=== PATIENT | female | born 1955 | race Native Hawaiian/Other Pacific Islander ===

== ENCOUNTER 2016-09-27 10:38 | Outpatient (CLI) | payer BC ==
[~2016-09-27] VITALS: Ht 160 cm; Wt 57.2 kg
[2016-09-27 11:00] VITALS: BP 123/57; TEMP 98.1
== END 2016-09-27 23:03 | disposition home or self-care (01) ==
LOC: INF 10:38
DX: M85.80 Other specified disorders of bone density and structure, unspecified site (principal)
CPT/HCPCS: 36415; 82310; 96372; J0897

== ENCOUNTER 2016-10-19 10:43 | Outpatient (CLI) | payer BC | END 2016-10-19 19:41 | disposition home or self-care (01) | LOC: RAD 10:43 | DX: J98.4 Other disorders of lung (principal) ==

== ENCOUNTER 2017-04-12 09:28 | Outpatient (CLI) | payer BC ==
[~2017-04-12] VITALS: Ht 160 cm; Wt 58.5 kg
[2017-04-12 10:25] VITALS: BP 105/59; TEMP 98.4
== END 2017-04-12 10:25 | disposition home or self-care (01) ==
LOC: INF 09:28
DX: M81.0 Age-related osteoporosis without current pathological fracture (principal)
CPT/HCPCS: 36415; 82310; 96372; J0897

== ENCOUNTER → 2017-09-07 14:40 | Outpatient (CLI) | payer BC | END | disposition home or self-care (01) | LOC: RAD 14:40 | DX: J45.30 Mild persistent asthma, uncomplicated (principal) ==

== ENCOUNTER 2017-09-23 15:43 | Outpatient (CLI) | payer BC | END 2017-09-23 21:08 | disposition home or self-care (01) | LOC: CT 15:43 | DX: R06.89 Other abnormalities of breathing (principal); R06.09 Other forms of dyspnea | CPT/HCPCS: 36415; 82565; 84520; Q9963 ==

== ENCOUNTER 2018-06-13 14:11 | Outpatient (CLI) | payer BC ==
[2018-06-13 14:33] LABS: PLATELET COUNT 242 K/uL (152-353)
== END 2018-06-13 21:24 | disposition home or self-care (01) ==
LOC: LABW 14:11
PROVIDERS: Internal Medicine Pulmonary Disease
DX: J30.2 Other seasonal allergic rhinitis (principal)
CPT/HCPCS: 36415; 82785; 85027

== ENCOUNTER 2018-09-26 08:45 | Outpatient (CLI) | payer BC | END 2018-09-26 19:12 | disposition home or self-care (01) | LOC: LABW 08:45 | DX: J45.40 Moderate persistent asthma, uncomplicated (principal) | CPT/HCPCS: 36415; 82785; 86003 ==

== ENCOUNTER 2019-03-21 11:01 | Outpatient (CLI) | payer BC | END 2019-03-21 23:47 | disposition home or self-care (01) | LOC: RAD 11:01 | DX: J45.50 Severe persistent asthma, uncomplicated (principal) ==

== ENCOUNTER 2021-11-30 16:04 | Outpatient (CLI) | payer BC | END 2021-11-30 20:17 | disposition home or self-care (01) | LOC: RAD 16:04 | PROVIDERS: ATTEND Internal Medicine | DX: M54.2 Cervicalgia (principal); Z98.890 Other specified postprocedural states ==

== ENCOUNTER 2022-02-04 10:09 | Outpatient (CLI) | payer BC | END 2022-02-04 19:54 | disposition home or self-care (01) | LOC: RAD 10:09 | PROVIDERS: ATTEND Internal Medicine | DX: Z13.820 Encounter for screening for osteoporosis (principal); N95.8 Other specified menopausal and perimenopausal disorders ==

== ENCOUNTER 2022-04-21 14:04 | Outpatient (CLI) | payer BC | END 2022-04-21 19:11 | disposition home or self-care (01) | LOC: RAD 14:04 | PROVIDERS: ATTEND Internal Medicine | DX: M79.671 Pain in right foot (principal); M25.571 Pain in right ankle and joints of right foot ==

== ENCOUNTER 2023-02-07 10:52 | Outpatient (CLI) | payer BC | END 2023-02-07 19:21 | disposition home or self-care (01) | LOC: RAD 10:52 | PROVIDERS: ATTEND Internal Medicine Pulmonary Disease | DX: J45.40 Moderate persistent asthma, uncomplicated (principal) ==